=== PATIENT | female | born 1975 | race Caucasian/White ===

== ENCOUNTER → 2018-05-24 14:48 | Outpatient (CLI) | payer BC, SELFPAY ==
--- NOTE | 2018-05-24 | DI.US.S_ITS ---
PROCEDURE: US THYROID INDICATIONS: NONTOXIC MULTINODULAR GOITER TECHNIQUE: Real-time scanning was performed of the thyroid gland, with image documentation. COMPARISON: [facility], US, THYROID, 03/24/2017, 16:19. FINDINGS: Right: Thyroid lobe measures 2.1 x 2.2 x 3.9 cm. there are 2 right thyroid nodules the largest of which is at the upper two thirds of the gland and the smaller of which is at the lower third. These measure up to 2.9 x 1.9 x 1.8 cm at the upper third and having previously measured approximately 2.3 x 1.6 x 2.3 cm no significant enlargement of this solid isoechoic smoothly demarcated nodule is seen. At the mid right thyroid lobe a 1.5 x 1.3 x 1.3 cm nodule has not appreciably changed either, measuring up to 1.5 x 0.9 x 1.3 cm previously in 2017. This is solid, isoechoic and smoothly marginated. Left: Thyroid lobe measures 1.0 x 1.0 x 3.9 cm. the left thyroid lobe contains a middle third 5 x 5 x 3 mm nodule solid and hypoechoic with smooth margination, newly identified. Isthmus: 4 mm thick. Lymph nodes: No regional lymphadenopathy. IMPRESSION: 2 dominant right thyroid nodules have not significantly changed in size considering slight differences in scan angulation from the comparison study and March of 2017. A newly visualized 5 mm maximal dimension small solid nodule is seen at the left mid thyroid lobe. Dictated by: Eric Toledo M.D. on 05/24/2018 at 17:21 Approved by: Eric Toledo M.D. on 05/24/2018 at 17:23
== END ==
PROVIDERS: PCP Internal Medicine; Visit Provider Internal Medicine
DX: E04.2 Nontoxic multinodular goiter (principal)
CPT/HCPCS: 76536

== ENCOUNTER → 2018-10-15 14:10 | Outpatient (CLI) | payer BC, SELFPAY ==
--- NOTE | 2018-10-15 | DI.MG.S_ITS ---
BILATERAL DIGITAL SCREENING MAMMOGRAM 3D/2D WITH CAD: 10/15/2018 CLINICAL: Routine screening. Baseline exam. No prior exams were available for comparison. The tissue of both breasts is extremely dense, which lowers the sensitivity of mammography. Current study was also evaluated with a Computer Aided Detection (CAD) system. No significant masses, calcifications, or other findings are seen in either breast. IMPRESSION: NEGATIVE There is no mammographic evidence of malignancy. A 1 year screening mammogram is recommended. This exam was interpreted at Station ID: [id number]. NOTE: For mammograms, a report in lay terms will be sent to the patient. Approximately 15% of breast malignancies will not be visualized mammographically. In the management of a palpable breast mass, a negative mammogram must not discourage biopsy of a clinically suspicious lesion. Electronically Signed By: Rudolph marie/jumana:10/15/2018 18:36:04 letter sent: Normal Exam ACR BI-RADS Category 1: Negative 3341F
== END ==
PROVIDERS: PCP Internal Medicine; Visit Provider Obstetrics & Gynecology
DX: Z12.31 Encounter for screening mammogram for malignant neoplasm of breast (principal)
CPT/HCPCS: 77063; 77067

== ENCOUNTER → 2020-09-11 14:40 | Outpatient (CLI) | payer OTHER, SELFPAY ==
--- NOTE | 2020-09-11 14:41 | DI.US.S_ITS ---
PROCEDURE: US ABDOMEN LIMITED INDICATIONS: EVALUATE FOR RIGHT INGUINAL HERNIA TECHNIQUE: Real-time focused scanning was performed of the abdomen, with image documentation. COMPARISON: None. FINDINGS: There is a right direct inguinal hernia seen, which is fat containing and reducible. The neck of the hernia measures 2.2 x 1.4 cm. The left side is also scanned and demonstrates an incidental direct fat containing reducible hernia. The hernia neck measures 6 x 7 mm. IMPRESSION: Bilateral inguinal hernias are seen, which contain fat and are reducible, right larger than left. Surgical consultation is recommended. If it would be helpful for clinical management decision making, please consider a dedicated CT of the pelvis, with at least IV contrast for further evaluation. Dictated by: Christofer Palmer M.D. on 09/11/2020 at 15:17 Approved by: Christofer Palmer M.D. on 09/11/2020 at 15:18
== END ==
PROVIDERS: PCP Internal Medicine; Referring Provider Internal Medicine; Visit Provider Internal Medicine
DX: K40.20 Bilateral inguinal hernia, without obstruction or gangrene, not specified as recurrent (principal)
CPT/HCPCS: 76705

== ENCOUNTER → 2020-09-18 16:18 | Outpatient (CLI) | payer OTHER, SELFPAY ==
--- NOTE | 2020-09-18 16:21 | DI.MG.S_ITS ---
BILATERAL DIGITAL SCREENING MAMMOGRAM 3D/2D WITH CAD: 09/18/2020 CLINICAL: Routine screening. Comparison is made to exam dated: 10/15/2018 [facility]. The tissue of both breasts is heterogeneously dense. This may lower the sensitivity of mammography. Current study was also evaluated with a Computer Aided Detection (CAD) system. No significant masses, calcifications, or other findings are seen in either breast. There has been no significant interval change. IMPRESSION: NEGATIVE There is no mammographic evidence of malignancy. A 1 year screening mammogram is recommended. This exam was interpreted at Station ID: [id number]. NOTE: For mammograms, a report in lay terms will be sent to the patient. Approximately 15% of breast malignancies will not be visualized mammographically. In the management of a palpable breast mass, a negative mammogram must not discourage biopsy of a clinically suspicious lesion. Electronically Signed By: Moy pepper/jumana:09/18/2020 17:58:32 letter sent: Normal Exam ACR BI-RADS Category 1: Negative 3341F
== END ==
PROVIDERS: PCP Internal Medicine; Referring Provider Internal Medicine; Visit Provider Internal Medicine
DX: Z12.31 Encounter for screening mammogram for malignant neoplasm of breast (principal)
CPT/HCPCS: 77063; 77067

== ENCOUNTER → 2020-09-19 15:20 | Outpatient (CLI) | payer OTHER, SELFPAY ==
[2020-09-19 16:48] LABS: COVID19 -Nasal RAPID Negative (Negative)
== END ==
PROVIDERS: PCP Internal Medicine; Visit Provider Surgery
DX: Z01.812 Encounter for preprocedural laboratory examination (principal); Z20.822 Contact with and (suspected) exposure to COVID-19
CPT/HCPCS: 87635; C9803

== ENCOUNTER 2020-09-20 11:39 | Day surgery (SDC) | payer OTHER, SELFPAY ==
[2020-09-20] VITALS (18 sets, daily range): BP systolic 100–135; BP diastolic 56–82; PULSE 74–98; RESP 12–18; TEMP 35.9–36.8; O2SAT 94–998; BMI 27.2
[2020-09-20] MEDS: LACTATED RINGERS 1,000 ML 42 ML IV (12:25)
--- NOTE | 2020-09-20 12:47 | PM.PREOP ---
Pre-operative Note COVID-19 COVID-19 status: Negative Result date/Date tested (Pos, Neg/Pending): 09/19/20 Interval Note History & Physical reviewed/Exam performed by Physician: Yes Changes to H&P: No
[2020-09-20] MEDS: CEFAZOLIN 2 GM/100 ML FROZ.PIGGY IV (13:02)
--- NOTE | 2020-09-20 13:32 | SUR.OPER ---
Supine on padded OR bed, head on pillow, arms padded and tucked at sides, legs uncrossed, safety belt at thigh, tape over blanket over lower legs . Gel pad under heels, pillow under knees.
[2020-09-20] MEDS: BUPIVACAINE 0.5% W/ EPI (PF) 30 ML VIAL INJ (13:45)
--- NOTE | 2020-09-20 14:43 | P.OP_ITS ---
Operative Date/Time/Diagnoses Date of procedure: 09/20/20 Time of procedure: 14:43 Pre-op diagnosis: right large direct and small indirect inguinal hernia; no left inguinal hernia Post-op diagnosis: same Procedure & Clinicians Procedure: Laparoscopic repair of right inguinal hernia with mesh Same procedure as scheduled: Yes Indications: Symptomatic right inguinal hernia Surgeon: Margarita Agrawal Click Yes if Unassisted: Yes Anesthesia Type: General Operative Notes Findings: Deep direct right inguinal hernia, small indirect right inguinal hernia; no left inguinal hernia Specimen(s): none sent Prosthetic devices, grafts, tissues, transplants, or devices: BARD right sided 3-D max polypropelene mesh Estimated Blood Loss (mL): 5 Procedure in detail: The patient was brought into the operating room and placed supine on the OR table. Sequential compression devices were placed on both legs and turned on. Appropriate perioperative antibiotics were given prior to the start of surgery. General anesthesia was induced the patient was intubated. A Jones catheter was placed sterilely in the bladder. The abdomen was prepped and draped in sterile fashion. Surgical time-out was conducted. Local anesthetic was injected under the skin just superior to the umbilicus and a 5 mm vertical incision was made at this site. The umbilical stalk was grasped with a Amy and elevated. A Veress needle was passed through the fascia into proper position. The position was tested with a saline drop test which was appropriate for intra-abdominal Veress needle placement. The abdomen was then insufflated in the usual fashion. Once insufflated to 15 mm Hg the Veress needle was removed and a 5 mm optical trocar was placed under direct vision using a 5 mm 30 degree scope. Once the camera was inside the abdomen I took a look around. There was no injury from port placement. Two additional ports were placed in a similar fashion in the right and left mid clavicular line at the level of the umbilicus, one handbreadth lateral to the umbilicus. The umbilical port was upsized to a 10mm port. Attention was turned to the pelvis, and both inguinal regions were evaluated. On the left side the peritoneum was smooth and intact, with no direct or indirect hernia defects seen. On the right side there was a fairly large and deep direct hernia, with no structures incarcerated into it. Beginning on the [right] side local anesthetic was in the infiltrated into the abdominal wall using 0.5% Marcaine with epi, in the region of the expected peritoneal incision. Metzenbaum scissors attached to cautery were then used to incise the peritoneum transversely from the midline laterally to the ASIS, 10 cm superior to the inguinal hernia defect. The peritoneal flap was developed down to the inguinal hernia defect. The deep direct sac was carefully pulled out of the hernia defect in order to avoid tearing it. The flap was densely adherent to the round ligament, and so the ligament had to be divided in order to bring the entire flap down for good mesh placement. Two 5mm clips were placed on the proximal end, and two on the distal end of the round ligament, and then it was divided with cautery. A small indirect defect was seen with some retroperitoneal fat in it. No femoral defect was seen. Once the flap had been fully developed, the MPO was completely exposed, and the hernia defects had been fully evaluated, I then exposed the pubic tubercle and push down the bladder so that there was space for good mesh placement. A medium sized 3DMax macro porous mesh was then brought into the field. I placed it through the 10 mm port and positioned it within the surgical defect covering the direct, indirect, and femoral space with 5 cm overlap in each direction. I then secured the mesh to the pubic tubercle in 2 locations using dissolvable surgical tacks. I then brought up the peritoneal flap. There was no clam shelling or bending of the mesh when the peritoneal flap was brought up. I then secured the peritoneum up to the abdominal wall using the same surgical tacker, with dissolvable tacks. There was no gapping of the peritoneal flap or exposed mesh. At this point the mesh was well positioned, secured, and well covered. There w as no exposed mesh, no bleeding, and the peritoneal flaps were in good position. At this point the umbilical port site was closed with 0 Vicryl suture in the fascia using a Hermilo-Prabhjot suture Passer. Insufflation was then removed from the abdomen, and the umbilical port site was closed with 3-0 Vicryl in the subcutaneous layers, and 4 Monocryl in the skin. The other 2 port sites were closed with 4 Monocryl in the skin. Each port site was sealed with Dermabond. Local anesthetic was given at each of the port sites and in the fascia. This concluded the procedure. At this point the needle sponge and instrument counts were correct. Patient was awakened from anesthesia and extubated. The Jones catheter was removed, [and the testicles were brought down to ensure they were in proper position]. The patient was transferred to the postanesthesia care unit in stable condition. Complications: none Post-operative Condition: stable Disposition: PACU
[2020-09-20] MEDS: METOCLOPRAMIDE 10 MG/2 ML INJ IV (14:53)
[2020-09-20] MEDS: ONDANSETRON 4 MG/2 ML INJ IV (15:10)
[2020-09-20] MEDS: LACTATED RINGERS 1,000 ML 100 ML IV (15:21)
[2020-09-20] MEDS: PROCHLORPERAZINE 10 MG/2 ML VIAL IV (16:10)
--- NOTE | 2020-09-20 16:26 | SUR.PHASEII ---
Pt transfered to Phase II at 1536. Pt con't nauseated. Small emesis shortly after arrival. Dr Guzman notifed and at bedside at 1553. Treated with small dose narcan by Dr Guzman. 1603 - small, clear white emesis. 1610 - Dr Guzman aware. Compazine given as ordered. 1615 - Up to bathroom. 1622 - Small, clear white emesis. 1625 - Dr Agrawal notified of status by VENECIA Monae. Dr Agrawal to put in admit orders. , Ryan, notified of status by VENECIA Monae.
--- NOTE | 2020-09-20 17:35 | SUR.PHASEII ---
No further emesis since 1621. Con't with nausea and intermittent retching. Report called to VENECIA Long. Transferred to 219. Bedisde handoff to VENECIA Long.
[2020-09-20] MEDS: SODIUM CHLORIDE 0.9% 1,000 ML 100 ML IV (18:11)
--- NOTE | 2020-09-20 20:10 | PC.NURSE ---
Patient arrived to floor with intense nausea that resolved with time and no interventions. Patient expressed desire to go home. Call placed to prov. to orders. Patient iv removed w/ out difficulty. VSS. patient denied any pain medication prior to leaving. Patient escorted via WC to personal vehicle in stable condition. Spouse carried personal items down to car.
== END 2020-09-20 20:12 | disposition home or self-care (01) ==
LOC: OR 15:02 → AC 17:29
PROVIDERS: PCP Internal Medicine; Referring Provider Surgery; Visit Provider Surgery
PROC: 0YQ54ZZ Repair Right Inguinal Region, Percutaneous Endoscopic Approach (ICD-10-PCS; CPT 49650; principal; 2020-09-20 13:00)
DX: K40.90 Unilateral inguinal hernia, without obstruction or gangrene, not specified as recurrent (principal); K21.9 Gastro-esophageal reflux disease without esophagitis
CPT/HCPCS: 49650; 81025; 82962; C1781; A9270; J0330; J0690; J0780; J1100; J1170; J1885; J2274; J2310; J2405; J2704; J2765; J3010

== ENCOUNTER → 2021-10-21 15:18 | Outpatient (CLI) | payer OTHER, SELFPAY ==
[2020-09-20 18:15] VITALS: BMI 27.2
--- NOTE | 2021-10-21 15:23 | DI.RAD.S_ITS ---
PROCEDURE: XR LUMBAR SPINE MIN 4V INDICATIONS: lumbago with sciatica (rt side) TECHNIQUE: 5 views of the lumbar spine acquired, including flexion and extension views. COMPARISON: [facility], , L-SPINE 2-3 VIEWS, 11/24/2009, 20:25. FINDINGS: Bones: 5 nonrib-bearing vertebrae are present with transitional L5 vertebral body which is partially sacralized.. There is normal bony alignment. No vertebral body compression fractures. No suspicious bony lesions. Multilevel grade 1 retrolisthesis. Severe disc degeneration at the L4-Transitional L5 level. Mild L4-L5 and L5-S1 facet joint arthropathy. Soft tissues: Overlying bowel gas pattern is normal. No suspicious soft tissue calcifications. IMPRESSION: 1. Lumbosacral transitional anatomy is present with transitional L5 vertebral body which is partially sacralized. Recommend full radiographic series prior to any elective surgical intervention for confirmation. 2. Severe disc degeneration at the L4-L5 level and mild L4-L5 and L5-S1 facet joint arthropathy. Dictated by: Jake Thakur [facility] Interpreted: Vijay Banda MD on 10/21/2021 at 15:49 Transcribed by: ALPESH on 10/21/2021 at 15:53 Approved by: Vijay Banda M.D. on 10/21/2021 at 16:49
== END ==
PROVIDERS: PCP Internal Medicine; Referring Provider Chiropractor; Visit Provider Chiropractor
DX: M51.16 Intervertebral disc disorders with radiculopathy, lumbar region (principal); M47.26 Other spondylosis with radiculopathy, lumbar region; M47.27 Other spondylosis with radiculopathy, lumbosacral region
CPT/HCPCS: 72110

== ENCOUNTER → 2021-11-04 17:24 | Outpatient (CLI) | payer OTHER, SELFPAY ==
[2020-09-20 18:15] VITALS: BMI 27.2
--- NOTE | 2021-11-04 17:26 | DI.MG.S_ITS ---
BILATERAL DIGITAL SCREENING MAMMOGRAM 3D/2D WITH CAD: 11/04/2021 CLINICAL: Routine screening. Family history of breast cancer. Comparison is made to exams dated: 09/18/2020 mammogram and 10/15/2018 mammogram - [facility]. The tissue of both breasts is heterogeneously dense. This may lower the sensitivity of mammography. Current study was also evaluated with a Computer Aided Detection (CAD) system. No significant masses, calcifications, or other findings are seen in either breast. There has been no significant interval change. IMPRESSION: NEGATIVE There is no mammographic evidence of malignancy. A 1 year screening mammogram is recommended. This exam was interpreted at Station ID: [id number]. NOTE: For mammograms, a report in lay terms will be sent to the patient. Approximately 15% of breast malignancies will not be visualized mammographically. In the management of a palpable breast mass, a negative mammogram must not discourage biopsy of a clinically suspicious lesion. Electronically Signed By: Moy pepper/jumana:11/05/2021 11:43:28 letter sent: Normal Exam ACR BI-RADS Category 1: Negative 3341F
== END ==
PROVIDERS: PCP Internal Medicine; Referring Provider Internal Medicine; Visit Provider Internal Medicine
DX: Z12.31 Encounter for screening mammogram for malignant neoplasm of breast (principal); Z80.3 Family history of malignant neoplasm of breast
CPT/HCPCS: 77063; 77067

== ENCOUNTER → 2022-05-05 08:13 | Outpatient (CLI) | payer OTHER, SELFPAY ==
[2020-09-20 18:15] VITALS: BMI 27.2
[2022-05-05 10:08] LABS: Add Manual Diff / Slide Review NO; Basophils Absolute Auto 0 /uL (0-100); Basophils Percent Auto 0.7 % (0-2); Eosinophils Absolute Auto 100 /uL (0-450); Eosinophils Percent Auto 1.9 % (2-4); Hematocrit 37.4 % (36-46); Lymphocytes Absolute Auto 1100 /uL (1100-4500); Lymphocytes Percent Auto 28.2 % (25-40); Mean Corpuscular HGB Conc 34.8 % (30-36); Mean Corpuscular Hemoglobin 31.9 PG (26-34); Mean Corpuscular Volume 91.6 fL (80-100); Monocytes Absolute Auto 200 /uL (0-900); Monocytes Percent Auto 5.9 % (3-14); Neutrophils Absolute Auto 2400 /uL (1500-7000); Neutrophils Percent Auto 63.3 % (50-75); Platelet Count 231 X10^3/uL (150-400); Red Blood Cell Count 4.09 X10^6/uL (4.0-5.2); Red Cell Distribution Width 12.5 % (11.6-14.8); White Blood Cell Count 3.7 X10^3/uL (4.5-11.0)
[2022-05-05 10:23] LABS: Alanine Aminotransferase 16 IU/L (<35); Albumin 3.9 g/dL (3.5-5.0); Albumin Globulin Ratio 1.3 (1.0-2.8); Alkaline Phosphatase 39 U/L (38-126); Aspartate Aminotransferase 27 IU/L (14-36); BUN Creatinine Ratio 17.6 (6-22); Bilirubin Total 0.5 mg/dL (0.2-1.3); Blood Urea Nitrogen 12 mg/dL (7-17); Calcium 8.4 mg/dL (8.4-10.2); Carbon Dioxide 29 mmol/L (22-32); Chloride 105 mmol/L (98-107); Cholesterol 196 mg/dL (140-199); Estimated Glomerular Filt Rate > 60 mL/min (>60); Globulin 2.9 g/dL (1.7-4.1); Glucose 95 mg/dL (70-100); HDL Cholesterol 53 mg/dL (40-60); HEMOLYSIS < 15 (0-50); LDL Cholesterol Calculated 131 mg/dL (<100); Potassium 4.2 mmol/L (3.4-5.1); Sodium 140 mmol/L (137-145); Total Protein 6.8 g/dL (6.3-8.2); Triglycerides 58 mg/dL (35-150)
[2022-05-05 10:46] LABS: Follicle Stimulating Hormone 1.86 mIU/mL; Prolactin 16.9 ng/mL (3.0-18.6)
[2022-05-05 11:02] LABS: Estradiol, Total 44.7 pg/mL; TSH w/ Reflex to FT4 1.93 uIU/mL (0.47-4.68)
== END ==
PROVIDERS: PCP Internal Medicine; Referring Provider Internal Medicine; Visit Provider Internal Medicine
DX: Z00.00 Encounter for general adult medical examination without abnormal findings (principal); E78.5 Hyperlipidemia, unspecified; E04.2 Nontoxic multinodular goiter; N92.6 Irregular menstruation, unspecified; R45.86 Emotional lability
CPT/HCPCS: 36415; 80053; 80061; 82670; 83001; 84146; 84443; 85025

== ENCOUNTER → 2022-07-26 12:34 | Outpatient (CLI) | payer OTHER, SELFPAY ==
[2020-09-20 18:15] VITALS: BMI 27.2
[2022-07-26 13:31] LABS: Influenza A - CEPHEID Flu A POSITIVE (NEGATIVE); Influenza B - CEPHEID Flu B NEGATIVE (NEGATIVE); Respiratory Syncytial Virus Negative (Negative)
[2022-07-26 13:32] LABS: COVID-19 CEPHEID 4-PLEX PCR Negative (Negative)
== END ==
PROVIDERS: PCP Internal Medicine; Visit Provider Registered Nurse
DX: J06.9 Acute upper respiratory infection, unspecified (principal); Z20.822 Contact with and (suspected) exposure to COVID-19
CPT/HCPCS: 0241U

== ENCOUNTER → 2023-05-28 16:35 | Outpatient (CLI) | payer OTHER, SELFPAY ==
[2020-09-20 18:15] VITALS: BMI 27.2
--- NOTE | 2023-05-28 | DI.MG.S_ITS ---
BILATERAL DIGITAL SCREENING MAMMOGRAM 3D/2D WITH CAD: 05/28/2023 CLINICAL: Routine screening. Family history of breast cancer. Comparison is made to exams dated: 11/04/2021 mammogram, 09/18/2020 mammogram, and 10/15/2018 mammogram - [facility]. Both breasts are heterogeneously dense, which may obscure small masses (category c / 51-75% glandular tissue). Current study was also evaluated with a Computer Aided Detection (CAD) system. No significant masses, calcifications, or other findings are seen in either breast. There has been no significant interval change. IMPRESSION: NEGATIVE There is no mammographic evidence of malignancy. A 1 year screening mammogram is recommended. Based on the Tyrer Cuzick model (a risk assessment model) the patient's lifetime risk is 19.4% and her 10 year risk is 4.1%. According to the ACR, ACS, and NCCN guidelines, an annual breast MRI exam along with mammogram is recommended if the patient's lifetime risk is 20% or greater. This exam was interpreted at Station ID: [id number]. NOTE: For mammograms, a report in lay terms will be sent to the patient. Approximately 15% of breast malignancies will not be visualized mammographically. In the management of a palpable breast mass, a negative mammogram must not discourage biopsy of a clinically suspicious lesion. Electronically Signed By: Moy pepper/jumana:05/29/2023 12:17:28 letter sent: Normal Exam ACR BI-RADS Category 1: Negative 3341F
--- NOTE | 2023-05-28 | DI.US.S_ITS ---
PROCEDURE: US THYROID INDICATIONS: NONTOXIC MULTINODULAR THYROID TECHNIQUE: Real-time scanning was performed of the thyroid gland, with image documentation. COMPARISON: [facility], US, US THYROID, 05/24/2018, 15:00. FINDINGS: Right: Thyroid lobe measures 5.2 x 2.1 x 2.6 cm, and is homogeneous in echotexture. Left: Thyroid lobe measures 4.1 x 1.2 x 1.2 cm, and is homogenous in echotexture. Isthmus: 3 mm thick. Nodule number: 1 Location: Left superior mid Size: 0.8 cm. Composition: Solid Echogenicity: Isoechoic Shape: wider than tall. Margins: Smooth Echogenic foci: Punctate Total points: 6 ACR TI-RADS category: Moderately suspicious Nodule number: 2 Location: Left mid Size: 0.7 cm. Composition: Cystic Echogenicity: Anechoic Shape: wider than tall. Margins: Smooth Echogenic foci: None Total points: 0 ACR TI-RADS category: Benign Nodule number: 3 Location: Left mid inferior Size: 0.5 cm. Composition: Cystic Echogenicity: Hyperechoic Shape: wider than tall. Margins: Smooth Echogenic foci: Peripheral calcifications Total points: 2 ACR TI-RADS category: Not suspicious Nodule number: 4 Location: Right mid Size: 1.9 cm. Composition: Solid Echogenicity: Isoechoic Shape: wider than tall. Margins: Smooth Echogenic foci: None Total points: 3 ACR TI-RADS category: Mildly suspicious Nodule number: 5 Location: Right mid superior Size: 3.9 cm. Composition: Solid Echogenicity: Hypoechoic Shape: wider than tall. Margins: Smooth Echogenic foci: None Total points: 4 ACR TI-RADS category: Moderately suspicious Nodule number: 6 Location: Right lateral/mid Size: 0.6 cm. Composition: Solid Echogenicity: Hypoechoic Shape: wider than tall. Margins: Smooth Echogenic foci: None Total points: 4 ACR TI-RADS category: Moderately suspicious IMPRESSION: Multiple bilateral thyroid nodules as detailed above. Interval increase in size of right mid superior thyroid nodule now measuring up to 3.9 cm, previously 2.9 cm. Based off consensus criteria for thisTI-RADS 4 nodule, fine needle aspiration is recommended further evaluation. Imaging follow-up of the other nodules as recommended below. ACR TI-RADS definitions and recommendations: TI-RADS 1 (benign): 0 points. FNA not needed. TI-RADS 2 (not suspicious): 2 points. FNA not needed. TI-RADS 3 (mildly suspicious): 3 points. * FNA if 2.5 cm or larger, follow up if 1.5 cm or larger (at 1, 3, and 5 years). TI-RADS 4 (moderately suspicious): 4-6 points. * FNA if 1.5 cm or larger, follow up if 1 cm or larger (at 1, 2, 3, and 5 years). TI-RADS 5 (highly suspicious): 7 points or more. * FNA if 1 cm or larger, follow up if 0.5 cm or larger (every year for 5 years). Dictated by: Maverick Barajas M.D. on 05/29/2023 at 9:13 Approved by: Maverick Barajas M.D. on 05/29/2023 at 9:48
== END ==
PROVIDERS: PCP Student in an Organized Health Care Education/Training Program; Referring Provider Student in an Organized Health Care Education/Training Program; Visit Provider Student in an Organized Health Care Education/Training Program
DX: Z12.31 Encounter for screening mammogram for malignant neoplasm of breast (principal); E04.2 Nontoxic multinodular goiter; Z80.3 Family history of malignant neoplasm of breast
CPT/HCPCS: 76536; 77063; 77067

== ENCOUNTER → 2023-06-30 17:42 | Outpatient (CLI) | payer OTHER, SELFPAY ==
[2020-09-20 18:15] VITALS: BMI 27.2
[2023-06-30 18:29] LABS: Free T4, Direct Thyroxine 0.86 ng/dL (0.78-2.19)
[2023-06-30 18:43] LABS: Thyroid Stimulating Hormone 1.94 uIU/mL (0.47-4.68)
== END ==
PROVIDERS: PCP Student in an Organized Health Care Education/Training Program; Referring Provider Internal Medicine Endocrinology, Diabetes & Metabolism; Visit Provider Internal Medicine Endocrinology, Diabetes & Metabolism
DX: E04.2 Nontoxic multinodular goiter (principal)
CPT/HCPCS: 36415; 84439; 84443

== ENCOUNTER → 2023-07-22 14:07 | Outpatient (CLI) | payer OTHER, SELFPAY ==
[2020-09-20 18:15] VITALS: BMI 27.2
--- NOTE | 2023-07-22 | PATH_ITS ---
Note [facility] Accession Number: [id number] TESTS RESULT FLAG UNITS REF RANGE LAB Clinician Provided Cytology Information No. of containers..01 Other (Miscellaneous) No. of containers..02 Previously Prepared Cytology Slide Source: RIGHT THYROID SUPERIOR/MID NODULE #5 DIAGNOSIS: 01 RIGHT THYROID SUPERIOR/MID NODULE #5, FINE NEEDLE ASPIRATION. NEGATIVE FOR MALIGNANT CELLS. ADEQUATE FOR EVALUATION. COLLOID AND FOLLICULAR GROUPS ARE PRESENT. BENIGN FOLLICULAR (GOITEROUS) NODULE (BETHESDA CATEGORY II), SEE COMMENT. COMMENT: MICROSCOPIC EXAMINATION REVEALS A MILDLY CELLULAR ASPIRATE, COMPOSED OF COLLOID, FOLLICULAR GROUPS WITHOUT SIGNIFICANT CYTOLOGIC OR ARCHITECTURAL ATYPIA, AND FEW MACROPHAGES. THESE FINDINGS SUPPORT A BENIGN FOLLICULAR (GOITEROUS) NODULE. CORRELATION WITH CLINICAL AND RADIOGRAPHIC FINDINGS IS RECOMMENDED. ACCORDING TO THE BETHESDA REPORTING SYSTEM FOR THYROID CYTOPATHOLOGY, THE RISK OF MALIGNANCY IN THE CATEGORY BENIGN-CATEGORY II IS 0-3%; THEREFORE RECOMMEND CONTINUED ULTRASOUND SURVEILLANCE WITH REPEAT FNA IF THE NODULE SIGNIFICANTLY INCREASES IN SIZE. Pathologist ICD10: 01 E04.2 Signed out by: Usman Umaña MD, Pathologist NPI- [id number] Performed by: Da Chandler, Parole Agent ([facility]) Gross description: 01 30 CC, RED, CLOUDY RECIEVED: IN CYTOLYT WITH 6 ALCOHOL FIXED AND 6 QUICK STAINED SLIDES ALSO 1 RNA VIAL WILL ON 03-09-2025.VO /VDU 07/23/2023 0903 [facility] FLAG LEGEND: L-Low Normal,H-High Normal,LL-Alert Low,HH-Alert High <-Panic Low,>-Panic High,A-Abnormal,AA-Critical Abnormal Performed at: 01 =[facility] [address] [place] [address] [address], [place] [address] Madhav Carroll MD, Performed at: 01 [facility] [address] [place] [address] [address], [place], [place] [id number] MD Madhav Carroll MD Phone: [phone]
--- NOTE | 2023-07-22 | PATH_ITS ---
Note [facility] Accession Number: [id number] TESTS RESULT FLAG UNITS REF RANGE LAB Clinician Provided Cytology Information No. of containers..01 Other (Miscellaneous) No. of containers..02 Previously Prepared Cytology Slide Source: RIGHT THYROID MID/INFERIOR NODULE #4 DIAGNOSIS: 01 RIGHT THYROID MID/INFERIOR NODULE #4, FINE NEEDLE ASPIRATION. NEGATIVE FOR MALIGNANT CELLS. ADEQUATE FOR EVALUATION. COLLOID AND FOLLICULAR GROUPS ARE PRESENT. BENIGN FOLLICULAR (GOITEROUS) NODULE (BETHESDA CATEGORY II), SEE COMMENT. COMMENT: MICROSCOPIC EXAMINATION REVEALS A MILDLY CELLULAR ASPIRATE, COMPOSED OF COLLOID, FOLLICULAR GROUPS WITHOUT SIGNIFICANT CYTOLOGIC OR ARCHITECTURAL ATYPIA, AND BACKGROUND MACROPHAGES. THESE FINDINGS SUPPORT A BENIGN FOLLICULAR (GOITEROUS) NODULE. CORRELATION WITH CLINICAL AND RADIOGRAPHIC FINDINGS IS RECOMMENDED. ACCORDING TO THE B[place]ESDA REPORTING SYSTEM FOR THYROID CYTOPATHOLOGY, THE RISK OF MALIGNANCY IN THE CATEGORY BENIGN-CATEGORY II IS 0-3%; THEREFORE RECOMMEND CONTINUED ULTRASOUND SURVEILLANCE WITH REPEAT FNA IF THE NODULE SIGNIFICANTLY INCREASES IN SIZE. Pathologist ICD10: 01 E04.2 Signed out by: Usman Umaña MD, Pathologist NPI- [id number] Performed by: John Rader, Gun Synchronizer ([facility]) Gross description: 30 CC, RED, CLOUDY RECIEVED: IN CYTOLYT WITH 6 ALCOHOL FIXED AND 6 QUICK STAINED SLIDES ALSO 1 RNA VIAL WILL ON 03-09-2025.VO /VDU 07/23/2023 0905 Local FLAG LEGEND: L-Low Normal,H-High Normal,LL-Alert Low,HH-Alert High <-Panic Low,>-Panic High,A-Abnormal,AA-Critical Abnormal Performed at: 01 =Z [facility] [address] [place] [address] [address], [place] [address] Madhav Carroll MD, Specimen Comment: [id number] Performed at: 01 [facility] [address] [place] [address] [address], [place], [place] [id number] MD Madhav Carroll MD Phone: [phone]
--- NOTE | 2023-07-22 | DI.US.S_ITS ---
PROCEDURE: US FINE NEEDLE ASPIRATION INDICATIONS: RIGHT THYROID NODULES #5 AND # 4 ASPIRATIONS TECHNIQUE: The indications, alternatives, benefits, risks, and complications of the procedure were explained to the patient. Written informed consent was obtained and placed in the chart. The thyroid region was examined sonographically and a site was chosen for ultrasound guided percutaneous sampling. The skin was prepared and draped in the usual fashion, and anesthetized with 1% lidocaine infiltrated from the skin down to the thyroid gland. Multiple passes were then performed, with contents emptied into an appropriate pathology specimen container. A bandage was applied to the area of access at completion of the study. COMPARISON: [facility], US, US THYROID, 05/28/2023, 17:07. FINDINGS: Location(s) of lesion(s) sampled: Right mid thyroid nodules #5 and #4 [place]: 5x 25 gauge and 1x 22 gauge on each nodule. Medications: 1% lidocaine for local anaesthesia. Complications: Mild bleeding. Exam was well tolerated by the patient. IMPRESSION: Successful ultrasound-guided thyroid nodule fine needle aspiration, with cytology results pending. Please see chart below for management recommendations based on cytology results. [facility] ReportingRecommendationsNon-diagnostic* Repeat US-guided FNA, with on-site cytology evaluation if possible. * Repeated non-diagnostic nodules without high suspicion US features: close observation vs surgical consult. * Consider surgery if nodule has high suspicion US features, grows >20% in 2 dimensions on followup, or patient has clinical risk factors for malignancy. Benign* If nodule has high suspicion US features: repeat US and FNA within 12 months. * If nodule has low to intermediate suspicion US features: repeat US at 12-24 months. If nodule grows (20% increase in at least 2 dimensions, with minimal increase of 2 mm or >50% change in volume), or development of new suspicious US features, then repeat FNA or continue followup. * If nodule has very low suspicion US features: followup US at >24 months. Atypia of undetermined significance, follicular lesion of undetermined significanceRepeat FNA, molecular testing, followup US, or surgical consult.Follicular neoplasm, suspicious for follicular neoplasmSurgical consult; also consider molecular testing. Suspicious for malignancySurgical consult.MalignantSurgical consult. Dictated by: Moy Chun M.D. on 07/22/2023 at 17:58 Approved by: Moy Chun M.D. on 07/22/2023 at 18:00
== END ==
PROVIDERS: PCP Student in an Organized Health Care Education/Training Program; Referring Provider Internal Medicine Endocrinology, Diabetes & Metabolism; Visit Provider Internal Medicine Endocrinology, Diabetes & Metabolism
DX: E04.2 Nontoxic multinodular goiter (principal)
CPT/HCPCS: 10005; 10006

== ENCOUNTER → 2024-05-26 07:35 | Outpatient (CLI) | payer OTHER, SELFPAY ==
[2020-09-20 18:15] VITALS: BMI 27.2
[2024-05-26 08:21] LABS: Add Manual Diff / Slide Review NO; Basophils Absolute Auto 0 /uL (0-100); Basophils Percent Auto 0.7 % (0-2); Eosinophils Absolute Auto 200 /uL (0-450); Eosinophils Percent Auto 4.9 % (2-4); Hematocrit 39.5 % (36-46); Hemoglobin 13.6 g/dL (12.0-16.0); Lymphocytes Absolute Auto 1500 /uL (1100-4500); Mean Corpuscular HGB Conc 34.6 % (30-36); Mean Corpuscular Hemoglobin 31.4 PG (26-34); Mean Corpuscular Volume 90.8 fL (80-100); Monocytes Absolute Auto 300 /uL (0-900); Monocytes Percent Auto 8.1 % (3-14); Neutrophils Absolute Auto 2000 /uL (1500-7000); Neutrophils Percent Auto 48.3 % (50-75); Platelet Count 249 X10^3/uL (150-400); Red Blood Cell Count 4.35 X10^6/uL (4.0-5.2); Red Cell Distribution Width 11.7 % (11.6-14.8); White Blood Cell Count 4.1 X10^3/uL (4.5-11.0)
[2024-05-26 08:45] LABS: HEMOLYSIS < 15 (0-50); Iron 154 ug/dL (37-170)
[2024-05-26 08:49] LABS: Alanine Aminotransferase 18 IU/L (<35); Albumin Globulin Ratio 1.6 (1.0-2.8); Alkaline Phosphatase 53 U/L (38-126); Aspartate Aminotransferase 26 IU/L (14-36); BUN Creatinine Ratio 18.3 (6-22); Bilirubin Total 0.5 mg/dL (0.2-1.3); Blood Urea Nitrogen 13 mg/dL (7-17); Calcium 9.3 mg/dL (8.4-10.2); Carbon Dioxide 29 mmol/L (22-32); Chloride 104 mmol/L (98-107); Cholesterol 246 mg/dL (140-199); Estimated Glomerular Filt Rate > 60 mL/min (>60); Globulin 2.5 g/dL (1.7-4.1); Glucose 99 mg/dL (70-100); HDL Cholesterol 71 mg/dL (40-60); HEMOLYSIS < 15 (0-50); LDL Cholesterol Calculated 163 mg/dL (<100); Potassium 4.2 mmol/L (3.4-5.1); Sodium 139 mmol/L (137-145); Total Protein 6.5 g/dL (6.3-8.2); Triglycerides 62 mg/dL (35-150)
[2024-05-26 08:58] LABS: Total Iron Binding Capacity 184 ug/dL (265-497); Transferrin 143 mg/dL (206-381)
[2024-05-26 09:01] LABS: Percent Iron Saturation 84 % (15-50)
[2024-05-26 09:02] LABS: Follicle Stimulating Hormone 30.3 mIU/mL
[2024-05-26 09:18] LABS: Estradiol, Total 61.1 pg/mL
[2024-05-26 09:20] LABS: Ferritin 85 ng/mL (6-137)
[2024-05-26 10:07] LABS: Hemoglobin A1C% w Est Avg Glu 5.6 % (4.0-6.0)
== END ==
LOC: LAB 07:36
PROVIDERS: PCP Student in an Organized Health Care Education/Training Program; Referring Provider Student in an Organized Health Care Education/Training Program; Visit Provider Student in an Organized Health Care Education/Training Program
DX: E78.00 Pure hypercholesterolemia, unspecified (principal); N95.1 Menopausal and female climacteric states; Z13.1 Encounter for screening for diabetes mellitus; Z83.49 Family history of other endocrine, nutritional and metabolic diseases
CPT/HCPCS: 36415; 80053; 80061; 82670; 82728; 83001; 83036; 83540; 83550; 85025

== ENCOUNTER → 2024-05-31 15:59 | Outpatient (CLI) | payer OTHER, SELFPAY ==
[2020-09-20 18:15] VITALS: BMI 27.2
--- NOTE | 2024-05-31 16:00 | DI.MG.S_ITS ---
BILATERAL DIGITAL SCREENING MAMMOGRAM 3D/2D WITH CAD: 05/31/2024 CLINICAL: Routine screening. Family history of breast cancer. Comparison is made to exams dated: 05/28/2023 mammogram, 11/04/2021 mammogram, and 09/18/2020 mammogram - [facility]. The breasts are heterogeneously dense, which may obscure small masses (category c / 51-75% glandular tissue). Current study was also evaluated with a Computer Aided Detection (CAD) system. No significant masses, calcifications, or other findings are seen in either breast. There has been no significant interval change. IMPRESSION: NEGATIVE There is no mammographic evidence of malignancy. A 1 year screening mammogram is recommended. Based on the Tyrer Cuzick model (a risk assessment model) the patient's lifetime risk is 19.3% and her 10 year risk is 4.3%. According to the ACR, ACS, and NCCN guidelines, an annual breast MRI exam along with mammogram is recommended if the patient's lifetime risk is 20% or greater. This exam was interpreted at Station ID: [id number]. NOTE: For mammograms, a report in lay terms will be sent to the patient. Approximately 15% of breast malignancies will not be visualized mammographically. In the management of a palpable breast mass, a negative mammogram must not discourage biopsy of a clinically suspicious lesion. Electronically Signed By: Elida Robb M.D., Ph.D. justo/jumana:06/02/2024 17:21:40 letter sent: Normal Exam ACR BI-RADS Category 1: Negative
== END ==
LOC: MAMMO 15:59
PROVIDERS: PCP Student in an Organized Health Care Education/Training Program; Referring Provider Student in an Organized Health Care Education/Training Program; Visit Provider Student in an Organized Health Care Education/Training Program
DX: Z12.31 Encounter for screening mammogram for malignant neoplasm of breast (principal); Z80.3 Family history of malignant neoplasm of breast; R92.333 Mammographic heterogeneous density, bilateral breasts
CPT/HCPCS: 77063; 77067

== ENCOUNTER → 2024-06-10 17:09 | Outpatient (CLI) | payer OTHER, SELFPAY ==
[2020-09-20 18:15] VITALS: BMI 27.2
[2024-06-10 17:54] LABS: Influenza A - CEPHEID Flu A NEGATIVE (NEGATIVE); Influenza B - CEPHEID Flu B NEGATIVE (NEGATIVE); Respiratory Syncytial Virus Negative (Negative)
[2024-06-10 17:58] LABS: COVID-19 CEPHEID 4-PLEX PCR Negative (Negative)
== END ==
PROVIDERS: PCP Student in an Organized Health Care Education/Training Program; Referring Provider Physician Assistant Medical; Visit Provider Physician Assistant Medical
DX: J04.0 Acute laryngitis (principal)
CPT/HCPCS: 0241U

== ENCOUNTER → 2024-12-20 16:08 | Outpatient (CLI) | payer OTHER, SELFPAY ==
[2020-09-20 18:15] VITALS: BMI 27.2
--- NOTE | 2024-12-20 16:11 | DI.MRI.S_ITS ---
MR breast BI wo/w con: 12/20/2024. BI-RADS: 1 CLINICAL: 49-year old female for bilateral diagnostic breast MRI. No personal or first-degree family history of breast cancer. Current reported family history of breast cancer: maternal uncle's daughter. PRIOR EXAMS: 05/31/2024, 05/28/2023, 11/04/2021, 09/18/2020, 10/15/2018. MRI TECHNIQUE: Bilateral breast MRI was performed on a 1.5 Gwen magnet using a dedicated breast coil with mild compression. Axial T1 and T2 STIR sequences were obtained. Dynamic contrast enhanced VIBRANT fat-suppressed sequences were obtained. Delayed sagittal high resolution or sagittal reconstructed isotropic sequence was also obtained. Subtraction images and maximum intensity projection images were obtained. The study was evaluated using [employer]ic software. FIBROGLANDULAR TISSUE Bilateral: B. Scattered fibroglandular tissue. BACKGROUND PARENCHYMAL ENHANCEMENT Bilateral: Minimal symmetrical background parenchymal enhancement. BREAST FINDINGS Bilateral: No suspicious mass, suspicious non-mass enhancement, or other concerning finding identified. IMPRESSION: * No evidence of malignancy. RECOMMENDATIONS Bilateral * Annual screening mammography. OVERALL ASSESSMENT CATEGORY BI-RADS-1: Negative. ELECTRONICALLY SIGNED: Elida Robb M.D. on 12/26/2024 at 04:42:54 PM PT Interpreting Station ID: [id number]
== END ==
PROVIDERS: PCP Student in an Organized Health Care Education/Training Program; Referring Provider Student in an Organized Health Care Education/Training Program; Visit Provider Student in an Organized Health Care Education/Training Program
DX: Z12.39 Encounter for other screening for malignant neoplasm of breast (principal); R92.333 Mammographic heterogeneous density, bilateral breasts; Z80.3 Family history of malignant neoplasm of breast
CPT/HCPCS: 77049; A9579

== ENCOUNTER → 2025-03-15 14:54 | Outpatient (CLI) | payer OTHER, SELFPAY ==
[2020-09-20 18:15] VITALS: BMI 27.2
[2025-03-15 15:19] LABS: Hematocrit 39.2 % (36-46)
[2025-03-15 16:22] LABS: Ferritin 109 ng/mL (6-137)
== END ==
PROVIDERS: PCP Student in an Organized Health Care Education/Training Program; Referring Provider Internal Medicine Hematology & Oncology; Visit Provider Internal Medicine Hematology & Oncology
DX: E83.110 Hereditary hemochromatosis (principal); E83.19 Other disorders of iron metabolism
CPT/HCPCS: 36415; 82728; 85014

== ENCOUNTER → 2025-03-21 10:29 | Outpatient (CLI) | payer OTHER, SELFPAY ==
[2020-09-20 18:15] VITALS: BMI 27.2
[2025-03-21 10:59] LABS: Add Manual Diff / Slide Review NO; Hematocrit 38.9 % (36-46); Hemoglobin 13.5 g/dL (12.0-16.0); Lymphocytes Absolute Auto 1300 /uL (1100-4500); Mean Corpuscular HGB Conc 34.8 % (30-36); Mean Corpuscular Hemoglobin 31.9 PG (26-34); Mean Corpuscular Volume 91.6 fL (80-100); Platelet Count 250 X10^3/uL (150-400)
[2025-03-21 11:28] LABS: Alanine Aminotransferase 20 IU/L (<35); Albumin 4.3 g/dL (3.5-5.0); Albumin Globulin Ratio 1.7 (1.0-2.8); Alkaline Phosphatase 53 U/L (38-126); Blood Urea Nitrogen 11 mg/dL (7-17); Calcium 9.3 mg/dL (8.4-10.2); Carbon Dioxide 30 mmol/L (22-32); Chloride 103 mmol/L (98-107); Estimated Glomerular Filt Rate > 60 mL/min (>60); Globulin 2.5 g/dL (1.7-4.1); Glucose 100 mg/dL (70-99); HEMOLYSIS < 15 (0-50); Potassium 4.2 mmol/L (3.4-5.1); Sodium 139 mmol/L (137-145); Total Protein 6.8 g/dL (6.3-8.2)
[2025-03-21 13:58] LABS: HEMOLYSIS < 15 (0-50); Iron 161 ug/dL (37-170)
[2025-03-21 14:13] LABS: Total Iron Binding Capacity 180 ug/dL (265-497); Transferrin 150 mg/dL (206-381)
[2025-03-21 14:14] LABS: Percent Iron Saturation 89 % (15-50)
== END ==
PROVIDERS: PCP Student in an Organized Health Care Education/Training Program; Referring Provider Student in an Organized Health Care Education/Training Program; Visit Provider Internal Medicine Hematology & Oncology
DX: E83.110 Hereditary hemochromatosis (principal)
CPT/HCPCS: 36415; 80053; 83540; 83550; 85025

== ENCOUNTER → 2025-04-14 15:23 | Outpatient (CLI) | payer OTHER, SELFPAY ==
[2020-09-20 18:15] VITALS: BMI 27.2
[2025-04-14 16:10] LABS: Add Manual Diff / Slide Review NO; Hematocrit 34.4 % (36-46); Hemoglobin 12.2 g/dL (12.0-16.0); Lymphocytes Absolute Auto 2000 /uL (1100-4500); Mean Corpuscular HGB Conc 35.6 % (30-36); Mean Corpuscular Hemoglobin 32.6 PG (26-34); Mean Corpuscular Volume 91.4 fL (80-100); Platelet Count 262 X10^3/uL (150-400)
[2025-04-14 16:40] LABS: HEMOLYSIS < 15 (0-50); Iron 99 ug/dL (37-170)
[2025-04-14 16:50] LABS: Percent Iron Saturation 50 % (15-50); Total Iron Binding Capacity 200 ug/dL (265-497); Transferrin 173 mg/dL (206-381)
[2025-04-14 17:14] LABS: Ferritin 71 ng/mL (6-137)
== END ==
PROVIDERS: PCP Student in an Organized Health Care Education/Training Program; Referring Provider Student in an Organized Health Care Education/Training Program
DX: E83.110 Hereditary hemochromatosis (principal)
CPT/HCPCS: 36415; 82728; 83540; 83550; 85025

== ENCOUNTER → 2025-04-24 14:59 | Outpatient (CLI) | payer OTHER, SELFPAY ==
[2020-09-20 18:15] VITALS: BMI 27.2
[2025-04-24 15:28] LABS: Add Manual Diff / Slide Review NO; Hematocrit 35.3 % (36-46); Hemoglobin 12.4 g/dL (12.0-16.0); Lymphocytes Absolute Auto 1700 /uL (1100-4500); Mean Corpuscular HGB Conc 35.2 % (30-36); Mean Corpuscular Hemoglobin 31.9 PG (26-34); Mean Corpuscular Volume 90.8 fL (80-100); Platelet Count 269 X10^3/uL (150-400)
[2025-04-24 16:03] LABS: HEMOLYSIS < 15 (0-50)
[2025-04-24 16:19] LABS: Total Iron Binding Capacity 195 ug/dL (265-497); Transferrin 181 mg/dL (206-381)
[2025-04-24 16:45] LABS: Ferritin 48 ng/mL (6-137)
[2025-04-26 14:37] LABS: Iron 83 ug/dL (37-170); Percent Iron Saturation 43 % (15-50)
== END ==
PROVIDERS: PCP Student in an Organized Health Care Education/Training Program
DX: E83.110 Hereditary hemochromatosis (principal)
CPT/HCPCS: 36415; 82728; 83540; 83550; 85025

== ENCOUNTER → 2025-05-08 10:21 | Outpatient (CLI) | payer OTHER, SELFPAY ==
[2020-09-20 18:15] VITALS: BMI 27.2
[2025-05-08 11:13] LABS: Hemoglobin A1C% w Est Avg Glu 5.0 % (4.0-6.0)
[2025-05-08 11:34] LABS: Cholesterol 269 mg/dL (140-199); HDL Cholesterol 84 mg/dL (40-60); Triglycerides 90 mg/dL (35-150)
[2025-05-08 11:46] LABS: Free T4, Direct Thyroxine 0.80 ng/dL (0.78-2.19)
[2025-05-08 12:00] LABS: Thyroid Stimulating Hormone 1.76 uIU/mL (0.47-4.68)
== END ==
PROVIDERS: PCP Student in an Organized Health Care Education/Training Program; Referring Provider Student in an Organized Health Care Education/Training Program; Visit Provider Student in an Organized Health Care Education/Training Program
DX: E04.2 Nontoxic multinodular goiter (principal); E78.00 Pure hypercholesterolemia, unspecified; R73.9 Hyperglycemia, unspecified
CPT/HCPCS: 36415; 80061; 83036; 84439; 84443

== ENCOUNTER → 2025-07-17 15:04 | Outpatient (CLI) | payer OTHER, SELFPAY ==
[2020-09-20 18:15] VITALS: BMI 27.2
[2025-07-17 15:31] LABS: Add Manual Diff / Slide Review NO; Hematocrit 39.4 % (36-46); Hemoglobin 13.5 g/dL (12.0-16.0); Lymphocytes Absolute Auto 1800 /uL (1100-4500); Mean Corpuscular HGB Conc 34.3 % (30-36); Mean Corpuscular Hemoglobin 30.7 PG (26-34); Mean Corpuscular Volume 89.5 fL (80-100); Platelet Count 274 X10^3/uL (150-400)
[2025-07-17 16:04] LABS: HEMOLYSIS < 15 (0-50); Iron 120 ug/dL (37-170)
[2025-07-17 16:15] LABS: Percent Iron Saturation 63 % (15-50); Total Iron Binding Capacity 189 ug/dL (265-497); Transferrin 188 mg/dL (206-381)
[2025-07-17 16:40] LABS: Ferritin 55 ng/mL (11-264)
== END ==
PROVIDERS: PCP Student in an Organized Health Care Education/Training Program
DX: E83.110 Hereditary hemochromatosis (principal)
CPT/HCPCS: 36415; 82728; 83540; 83550; 85025

== ENCOUNTER → 2025-07-18 15:55 | Outpatient (CLI) | payer OTHER, SELFPAY ==
[2020-09-20 18:15] VITALS: BMI 27.2
--- NOTE | 2025-07-18 15:56 | DI.MG.S_ITS ---
MM screening mammo BI: 07/18/2025. BI-RADS: 1 CLINICAL: 50-year old female for bilateral screening mammogram. Tyrer-Cuzick lifetime risk of 15.0%. No personal or first-degree family history of breast cancer. Current reported family history of breast cancer: maternal uncle's daughter. PRIOR EXAMS Breast MRI(s): 12/20/2024. Five Other Exams on 05/31/2024, 05/28/2023, 11/04/2021, 09/18/2020, 10/15/2018. MAMMOGRAPHY TECHNIQUE: 2D and 3D (tomosynthesis) digital mammographic views obtained, with additional images as needed for full coverage. Current study was also evaluated with a Computer Aided Detection (CAD) system. DENSITY C. The breasts are heterogeneously dense, which may obscure small masses. MAMMOGRAPHY FINDINGS Bilateral: No suspicious mass, asymmetry, microcalcification, or other abnormality seen. No significant change from comparison. IMPRESSION: * No evidence of malignancy. RECOMMENDATIONS Bilateral * Annual screening mammography. OVERALL ASSESSMENT CATEGORY BI-RADS-1: Negative. The [employer] recommends annual screening mammography beginning at age 40 for women with average risk of breast cancer. ELECTRONICALLY SIGNED: Agapito Bear M.D. on 07/19/2025 at 10:10:05 AM PT Interpreting Station ID: [id number]
== END ==
LOC: MAMMO 15:56
PROVIDERS: PCP Student in an Organized Health Care Education/Training Program; Referring Provider Student in an Organized Health Care Education/Training Program; Visit Provider Student in an Organized Health Care Education/Training Program
DX: Z12.31 Encounter for screening mammogram for malignant neoplasm of breast (principal); Z80.3 Family history of malignant neoplasm of breast; R92.333 Mammographic heterogeneous density, bilateral breasts
CPT/HCPCS: 77063; 77067